=== PATIENT | male | born 1975 | race Two or more races ===

== ENCOUNTER 2021-10-14 13:09 | Outpatient (CLI) | payer OTHER | END 2021-10-14 13:10 | disposition home or self-care (01) | LOC: LAB 13:09 | PROVIDERS: ATTEND Anesthesiology | DX: Z11.52 Encounter for screening for COVID-19 (principal); Z20.822 Contact with and (suspected) exposure to COVID-19 ==

== ENCOUNTER 2021-10-21 11:59 | Outpatient (CLI) | payer OTHER | END 2021-10-21 12:00 | disposition home or self-care (01) | LOC: LAB 11:59 | PROVIDERS: ATTEND Anesthesiology | DX: U07.1 COVID-19 (principal) ==